=== PATIENT | female | born 1940 | race Caucasian/White ===

== ENCOUNTER 2021-06-04 21:15 | Emergency (ER) | payer MEDICARE ==
[~2021-06-04] VITALS: Ht 152.4 cm; Wt 90.1 kg
--- NOTE | 2021-06-04 22:06 | PHYS DOC ---
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 Patient lives in a fpc was sent to the emergency department for evaluation after a fall. Patient was found in her room on the floor. Patient is not able to provide any history. No deformities noted of bilateral upper and lower extremities. Patient does not grimace with movement of bilateral upper and left lower extremities. Patient has no tenderness to palpation of left hip. Patient does somewhat grimace when you move her right lower extremity. Right lower extremity is not shortened or rotated. Patient does have an abrasion over her right knee. No other injuries observed. Son at bedside states patient with baseline mental status. Review of Systems: Review of Systems: Story limited due to medical condition Heart Score: C/O Chest Pain: N/A Risk Factors: Risk Factors: DM, Current or recent (<one month) smoker, HTN, HLP, family hi story of CAD, obesity. Risk Scores: Score 0 - 3: 2.5% MACE over next 6 weeks - Discharge Home Score 4 - 6: 20.3% MACE over next 6 weeks - Admit for Clinical Observation Score 7 - 10: 72.7% MACE over next 6 weeks - Early Invasive Strategies Allergies: Allergies: Allergies Coded Allergies Type Severity Reaction Last Updated Verified Penicillins Allergy Intermediate Rash 05/05/16 Yes Physical Exam: PE: Constitutional: Well developed, well nourished, no acute distress, non-toxic appearance. [] HENT: Normocephalic, atraumatic, bilateral external ears normal, oropharynx moist, no oral exudates, nose normal. [] Eyes: PERRLA, EOMI, conjunctiva normal, no discharge. [] Neck: Normal range of motion, no tenderness, supple, no stridor. [] Cardiovascular:Heart rate regular rhythm, no murmur [] Lungs & Thorax: Bilateral breath sounds clear to auscultation [] Abdomen: Bowel sounds normal, soft, no tenderness, no masses, no pulsatile masses. [] Skin: Warm, dry, no erythema, no rash. [] Back: No tenderness, no CVA tenderness. [] Extremities: No tenderness, no cyanosis, no clubbing, ROM intact, no edema. [] Neurologic: Alert and oriented X 3, normal motor function, normal sensory function, no focal deficits noted. [] Psychologic: Affect normal, judgement normal, mood normal. [] Current Patient Data: Vital Signs: Vital Signs Date Time Temp Pulse Resp B/P (MAP) Pulse Ox O2 Delivery O2 Flow Rate FiO2 06/04/21 21:15 98.0 103 20 127/63 (96) 94 Room Air 98.0 EKG: EKG: [] Radiology/Procedures: Radiology/Procedures: [] Impression: X-ray no acute fractures or dislocations Course & Med Decision Making: Course & Med Decision Making Pertinent Labs and Imaging studies reviewed. (See chart for details) [] Patient was evaluated for chief complaint. Work-up consisted of radiologic imaging. Dragon Disclaimer: Dragon Disclaimer: This electronic medical record was generated, in whole or in part, using a voice recognition dictation system. Departure Departure Impression: Primary Impression: Fall Additional Impression: Abrasion, knee Referrals: KARLENE VEGA MD (PCP) Patient Instructions: ALFONSO Salmeron DO Jun 04, 2021 22:06
--- NOTE | 2021-06-04 22:23 | RAD ---
Exam: Right knee 3 views INDICATION: Fall TECHNIQUE: Frontal, lateral oblique views of the right knee Comparisons: None FINDINGS: Bone mineralization is normal. No acute or healed fractures. Soft tissues are unremarkable. Joint spa chung are well-maintained. IMPRESSION: No acute osseous abnormality. Electronically signed by: Rene Sampson MD (06/04/2021 10:20 PM) JUVENTINO
--- NOTE | 2021-06-04 22:35 | RAD ---
Exam: Pelvis with right hip 2 views INDICATION: Fall TECHNIQUE: Frontal and frog-leg lateral views the right hip Comparisons: None FINDINGS: Diffuse osteopenia. No acute or healed fractures. Soft tissues are unremarkable. Joint spaces are wel l-maintained. IMPRESSION: No acute fractures identified in the setting of diffuse osteopenia. If the patient is acutely unable to bear weight MRI to rule out occult hip fracture is recommended. Electronically signed by: Rene Sampson MD (06/04/2021 10:32 PM) JUVENTINO
[2021-06-04 23:23] VITALS: BP 120/62
== END 2021-06-05 01:00 | disposition home or self-care (01) ==
LOC: ER 21:15
DX: S80.211A Abrasion, right knee, initial encounter (principal); M25.551 Pain in right hip; I10 Essential (primary) hypertension; E78.00 Pure hypercholesterolemia, unspecified; Z86.73 Personal history of transient ischemic attack (TIA), and cerebral infarction without residual deficits; Z87.891 Personal history of nicotine dependence
CPT/HCPCS: 73502; 73562; 99284

== ENCOUNTER 2021-09-11 21:09 | Inpatient (IN) | payer MEDICARE ==
[~2021-09-11] VITALS: Ht 162.6 cm; Wt 83.0 kg
--- NOTE | 2021-09-11 21:22 | PHYS DOC ---
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 She does not reportedly normally require supplemental oxygen treatment. EMS gave a DuoNeb in route. She remains dyspneic on arrival, with tachypnea. She is saturating well on her supplemental oxygen. No documented known history of COPD. The patient is minimally verbal and essentially nonverbal at baseline. She moans and yells frequently to communicate. I am not able to procure any other meaningful information from the patient directly secondary to this issue. Per EMS and per the care facility, no acute mental status changes are reported. Review of Systems: Review of Systems: Constitutional: No report of fever Eyes: Unable to obtain details HENT: Unable to obtain details Respiratory: Cough and dyspnea and wheezing Cardiovascular: Unable to obtain details regarding presence of chest pain GI: Report of vomiting. Unable to obtain details of nausea or subjective abdominal pain. : Unobtainable Musculoskeletal: Unobtainable Integument: Unobtainable. No reported new skin changes Neurologic: No reported syncope or fall. Unknown if she has a headache. Unknown if she has any new sensory changes. She has chronic weakness without any acute mental status changes reported. Psychiatric: No reported acute mood changes, otherwise unobtainable. [] Heart Score: C/O Chest Pain: N/A Risk Factors: Risk Factors: DM, Current or recent (<one month) smoker, HTN, HLP, family history of CAD, obesity. Risk Scores: Score 0 - 3: 2.5% MACE over next 6 weeks - Discharge Home Score 4 - 6: 20.3% MACE over next 6 weeks - Admit for Clinical Observation Score 7 - 10: 72.7% MACE over next 6 weeks - Early Invasive Strategies Allergies: Allergies: Allergies Coded Allergies Type Severity Reaction Last Updated Verified Penicillins Allergy Intermediate Rash 05/05/16 Yes Physical Exam: PE: Constitutional: Well developed, well nourished, she is chronically ill- appearing, she is in mild to moderate respiratory distress HENT: Normocephalic, atraumatic, mucous membranes moist. Oropharynx is patent and clear. Eyes: Sclera are clear, anicteric Neck: Trachea is midline. Cardiovascular:Heart rate regular rhythm, +2 radial and +2 posterior tibial pulses bilaterally Lungs & Thorax: Tachypnea and intercostal retractions are noted. No nasal flaring. No cyanosis. Diffuse bilateral inspiratory and expiratory wheezes are noted. Diffuse rales and rhonchi are noted. Diminished breath sounds in bilateral bases. No stridor. Frequent coughing is noted. Abdomen: Soft, nondistended, no apparent tenderness. Skin: Warm, dry, no erythema, no rash. No cyanosis. Extremities: No limb deformity. She does have bilateral, symmetric lower extremity edema. No calf tenderness elicited. Neurologic: He is awake and alert. There is no obvious facial asymmetry noted. Full verbiage or communication is noted. She does moan and yell occasionally, which is common for her at baseline. She localizes to pain. Gag reflex is intact. Psychologic: She is mildly anxious [] EKG: EKG: EKG is interpreted at 2207 Rhythm is sinus tachycardia Rate is 102 bpm Low voltage No STEMI Radiology/Procedures: Radiology/Procedures: IMAGING REPORT Signed PATIENT: EMILIA COTA ACCOUNT: [id number] : 1940 LOCATION: [facility] AGE: 81 SEX: F EXAM STATUS: ADM IN ORD. PHYSICIAN: SEN COELHO DO REASON: dyspnea PROCEDURE: PORTABLE CHEST 1V XR CHEST 1V History: Dyspnea Comparison: Rib series 05/05/2016 Technique: Portable AP radiograph of the chest. Findings: Rotated positioning. Bibasilar hazy airspace opacification. No pleural effusion or pneumothorax. Cardiac mediastinal silhouette is normal in size with calcified aorta. Senescent changes of the spine. Soft tissues are unremarkable. Impression: 1. Hazy bibasilar opacities may represent atelectasis or infection. Electronically signed by: Kaleb King MD (09/12/2021 1:04 AM) [id number] DICTATED and SIGNED BY: KALEB KING MD DATE: 09/12/21 [id number] 0 Course & Med Decision Making: Course & Med Decision Making Pertinent Labs and Imaging studies reviewed. (See chart for details) The patient has history of being a former smoker. There is no documented report of COPD on her chart, though this still may be at least partially responsible for current symptoms and clinical condition. The patient is given a DuoNeb treatment here, as well as IV Solu-Medrol. She remains stable on nasal cannula oxygen. Her tachypnea is improved, no longer manifesting retractions. I did order lactate and blood cultures. Clinically she does appear to have pneumonia/pneumonitis, possible COPD exacerbation. IV Rocephin and p.o. azithromycin empirically ordered for treatment of this. The patient did rip out her IV, which was easily replaced by nursing staff. I told the patient I am recommending admission. I did review the patient's paperwork from her care facility. She has a documented DNR on file. Patient will be admitted to the hospitalist service, Dr. Deric Cunningham Disclaimer: Octavio Disclaimer: This electronic medical record was generated, in whole or in part, using a voice recognition dictation system. Departure Departure Impression: Primary Impression: Acute dyspnea Additional Impressions: Bronchospasm Pneumonia Requires supplemental oxygen Disposition: ADMITTED INPATIENT Admitting Physician: LUCIUS Condition: GUARDED Referrals: KARLENE VEGA MD (PCP) SEN COELHO DO Sep 11, 2021 21:22
[2021-09-11] MEDS ORDERED: methylPREDNISolone SOD SUCC PF 125 MG/2 ML VIAL. IV ONE (22:00)
[2021-09-11] MEDS ORDERED: IPRATRPIUM/ALBUTEROL 0.5/2.5MG 3 ML NEBU. NEB ONE (22:00)
[2021-09-11 22:02] LABS: BASE EXCESS ABG 2 mmol/L (-3-3); HCO3 ABG 26 mmol/L (21-28); PCO2 ABG 41 mmHg (35-46); PO2 ABG 71 mmHg (65-108); SAT O2 ABG 94 % (92-99)
[2021-09-11] MEDS ORDERED: ONDANSETRON PF 4 MG/2 ML VIAL. ONE (22:04)
[2021-09-11 22:06] LABS: FIO2 ABG 44 (6L NC)
[2021-09-11 22:46] LABS: BASO # 0.1 x10^3/uL (0.0-0.2); BASO % 1 % (0-3); EOS # 0.3 x10^3/uL (0.0-0.7); EOS % 3 % (0-3); HEMATOCRIT 45.3 % (36.0-47.0); LYMPH # 2.1 x10^3/uL (1.0-4.8); LYMPH % 21 % (24-48); MEAN CORPUSCULAR HEMOGLOBIN 32 pg (25-35); MEAN CORPUSCULAR HGB CONC 33 g/dL (31-37); MEAN CORPUSCULAR VOLUME 96 fL (79-100); MONO # 0.8 x10^3/uL (0.0-1.1); MONO % 8 % (0-9); NEUT % 68 % (31-73); PLATELET COUNT 253 x10^3/uL (140-400); RED BLOOD COUNT 4.74 x10^6/uL (3.50-5.40); RED CELL DISTRIBUTION WIDTH 14.1 % (11.5-14.5); WHITE BLOOD COUNT 10.3 x10^3/uL (4.0-11.0)
[2021-09-11 23:01] LABS: CALCIUM 8.9 mg/dL (8.5-10.1); CREATININE 0.9 mg/dL (0.6-1.0); GFR 59.8; POTASSIUM 4.4 mmol/L (3.5-5.1)
[2021-09-11 23:06] LABS: ALBUMIN/GLOBULIN RATIO 0.8 (1.0-1.7); TOTAL BILIRUBIN 0.4 mg/dL (0.2-1.0); TOTAL PROTEIN 6.6 g/dL (6.4-8.2)
[2021-09-11 23:08] LABS: INFLUENZA A PATIENT NEGATIVE (NEGATIVE); INFLUENZA B PATIENT NEGATIVE (NEGATIVE)
[2021-09-12] MEDS ORDERED: ONDANSETRON PF 4 MG/2 ML VIAL. IVP PRN (00:30)
[2021-09-12] MEDS ORDERED: AZITHROMYCIN 250 MG TABLET. PO ONE (01:00)
[2021-09-12] MEDS ORDERED: cefTRIAXone IV Push 1 GM VIAL. IVP ONE (01:00)
--- NOTE | 2021-09-12 01:07 | RAD ---
XR CHEST 1V History: Dyspnea Comparison: Rib series 05/05/2016 Technique: Portable AP radiograph of the chest. Findings: Rotated positioning. Bibasilar hazy airspace opacification. No pleural effusion or pneumothorax. Card iac mediastinal silhouette is normal in size with calcified aorta. Senescent changes of the spine. So ft tissues are unremarkable. Impression: 1. Hazy bibasilar opacities may represent atelectasis or infection. Electronically signed by: Kaleb Emanule MD (09/12/2021 1:04 AM) [id number]
--- NOTE | 2021-09-12 02:22 | EKG ---
[facility] [address] [place] [address] Test Date: 2021-09-11 Test Time: 21:59:07 Pat Name: EMILIA COTA Department: Room: 646 1 Gender: F Behaviorist: : 1940 Requested By: SEN COELHO Order Number: [id number] Reading MD: Samson Reed Measurements Intervals [place] Rate: 102 P: 0 DE: 208 QRS: -24 QRSD: 100 T: -54 QT: 338 QTc: 445 Interpretive Statements SINUS TACHYCARDIA ATRIAL PREMATURE COMPLEX(ES) Electronically Signed On 09-19-2021 11:42:42 [employer]A [employer]ER FEEDER by Samson Reed
[2021-09-12 02:35] VITALS: BP 103/59
--- NOTE | 2021-09-12 02:35 | NUR ---
The patient, EMILIA COTA, 81 y/o, F admitted by NIVIA TANNER MD, for COPD, Bronchospasms,and Pneumonia, PUI was given written information regarding hospital policies, unit procedures and contact persons. Patient oriented to room, call light, phone, bed and POC. Patient unable to verbalize understanding. Call light in reach. Patient aphasic, History, medications pulled from facility paperwork. Valuables were checked and documented.
[2021-09-12] MEDS ORDERED: INFLUENZA VAX SCREEN BY RX. MC PRN (03:15)
[2021-09-12] MEDS ORDERED: LEVO75CA4 PO (03:27)
[2021-09-12] MEDS ORDERED: ATOR40TA59 PO (03:28)
[2021-09-12] MEDS ORDERED: CLOP75TA PO (03:29)
[2021-09-12] MEDS ORDERED: ESCITALOPRAM OX20 MG PO (03:30)
[2021-09-12] MEDS ORDERED: CARV6.2511 PO (03:31)
[2021-09-12] MEDS ORDERED: CHOL2400 MC (03:34)
[2021-09-12] MEDS ORDERED: ACET325T21 PO (03:35)
[2021-09-12] MEDS ORDERED: GUAI-519 PO (03:37)
[2021-09-12] MEDS ORDERED: LOPE1LIQ7 PO (03:39)
[2021-09-12] MEDS ORDERED: MENT3.5O TP (03:40)
[2021-09-12] MEDS ORDERED: NYST15OI TP (03:42)
[2021-09-12] MEDS ORDERED: PETR113O TP (03:43)
[2021-09-12] MEDS ORDERED: DIPH1TAB PO (03:44)
[2021-09-12 07:00] VITALS: BP 106/54
[2021-09-12] MEDS ORDERED: FUROSEMIDE 20 MG/2 ML VIAL. IVP ONE (08:30)
--- NOTE | 2021-09-12 08:44 | CONS ---
PULMONARY CONSULTATION ATTENDING PHYSICIAN: Dr. Leos. REASON FOR CONSULTATION: Dyspnea, wheezing. HISTORY OF PRESENT ILLNESS: The patient is an 81-year-old female who was brought in to the hospital at [facility] from a long-term facility for cough and dyspnea. She was hypoxic. The patient normally does not require oxygen. She was dyspneic on arrival. The patient was placed on oxygen. Currently, she is on 3 liters of oxygen. She is minimally verbal. She moans and yells frequently to communicate but she is not able to give any history. I have seen the patient's chest x-ray, there are bilateral interstitial infiltrates. Her proBNP was in 600 range. Fever has been reported at 99.9 since admission. She is currently on oxygen at 3 liters. Consultation requested for further evaluation and management. PAST MEDICAL HISTORY: Significant for history of CVA with expressive aphasia, history of hemiplegia and hemiparesis after a CVA in 2010, history of dyslipidemia and hypertension. PAST SURGICAL HISTORY: Hysterectomy. SOCIAL HISTORY: Former smoker. ALLERGIES: PENICILLIN, CODEINE, SULFAMETHOXAZOLE AND TRIMETHOPRIM. REVIEW OF SYSTEMS: Unable to obtain from the patient. MEDICATIONS: Reviewed as listed in the MRAD. PHYSICAL EXAMINATION: VITAL SIGNS: T-max of 99.9, blood pressure is stable, pulse ox 98% on 6 liters last reported. NECK: Supple. LUNGS: With occasional rhonchi and wheezes. CARDIOVASCULAR: With a regular rate. ABDOMEN: Soft. EXTREMITIES: With no pitting edema. LABORATORY DATA: Reviewed. Her influenza is negative. Rapid COVID is negative. BUN and creatinine 9 and 0.9. ProBNP 684. Albumin 3.0. White cell count 10.3. ABGs with a pH of 7.43, pCO2 of 41 and a pO2 of 71 on 6 liters. IMPRESSION: 1. Acute hypoxic respiratory failure with bilateral infiltrates and low-grade fever. Differential diagnosis would include COVID-19 viral pneumonia, possible bacterial pneumonia and possible low-grade congestive heart failure. However, in the setting of fever, infection is likely the etiology. 2. Rapid antigen for COVID negative. We will await PCR. 3. Abnormal chest x-ray with bilateral faint interstitial infiltrates. 4. Underlying chronic obstructive pulmonary disease with acute exacerbation. This is also contributing to her hypoxic respiratory failure. 5. Previous CVA with expressive aphasia. RECOMMENDATIONS: 1. We will continue present oxygen, keep saturation 92% and above. 2. Continue empiric antibiotic. 3. Continue steroids. 4. Add DuoNeb along with Pulmicort. 5. Obtain PCR for COVID. 6. Obtain procalcitonin level. 7. Trial of mild diuresis. 8. Discussed with RN. We will follow along with you. AMITA DR: Irwin TID: [id number] MTDD
[2021-09-12 10:49] VITALS: BP 99/78
[2021-09-12] MEDS: IPRATRPIUM/ALBUTEROL 0.5/2.5MG 3 ML NEBU. NEB SCH ×2 (11:14→19:06)
--- NOTE | 2021-09-12 11:33 | NUR ---
SS following for discharge planning. SS reviewed pt chart and discussed with pt RN. Pt is resident from [facility], ; fax [phone]. Pt is currently requiring oxygen at three liters nasal canula. Pt has no home oxygen. COVID19 test pending on rapid test. PCR pending at this time. Pulmonology and Cardiology consulted. Pt on IV Azithromycin and IV Solu-Medrol. SS will continue to follow for discharge planning.
--- NOTE | 2021-09-12 12:00 | PDOC2 ---
MAYKELLAKSHMI VILLELA APPLICATION DEVELOPMENT SPECIALIST 09/12/21 1200: CARDIAC CONSULT DATE OF CONSULT Date of Consult DATE: 09/12/21 TIME: 11:54 REASON FOR CONSULT Reason for Consult: CHF, AFIB with RVR REFERRING PHYSICIAN Referring Physician: Dr. Sanchez SOURCE Source: Chart review HISTORY OF PRESENT ILLNESS HISTORY OF PRESENT ILLNESS This is an 81 yo female who presented secondary to shortness of breath, cough, and hypoxia. Has a history of AFIB, which prompted this consult. Rate has been mildly elevated. AFIB details unknown. Is noncommunicative verbally at baseline. History obtained from chart review. PAST MEDICAL HISTORY Cardiovascular: AFIB, HTN, Hyperlipidemia Pulmonary: COPD, Pneumonia CENTRAL NERVOUS SYSTEM: CVA Psych: Anxiety, Depression Endocrine: Hypothyroidism PAST SURGICAL HISTORY Past Surgical History: Hysterectomy FAMILY HISTORY Family History: Family History Unknown SOCIAL HISTORY Smoke: Quit ALCOHOL: none Drugs: None Lives: Jail CURRENT MEDICATIONS CURRENT MEDICATIONS Current Medications Medications (Trade) Dose Ordered Sig/Angela Route PRN Reason Start Time Stop Time Status Last Admin Dose Admin Albuterol/ Ipratropium (Duoneb) 3 ml 1X ONCE NEB 09/11/21 22:00 09/11/21 22:01 DC 09/11/21 21:50 Methylprednisolone Sodium Succinate (SOLU-Medrol 125MG VIAL) 125 mg 1X ONCE IV 09/11/21 22:00 09/11/21 22:01 DC 09/11/21 21:59 Ceftriaxone Sodium (Rocephin) 2 gm 1X ONCE IVP 09/12/21 01:00 09/12/21 01:01 DC 09/12/21 01:51 Azithromycin (Zithromax) 500 mg 1X ONCE PO 09/12/21 01:00 09/12/21 01:01 DC 09/12/21 01:48 Furosemide (Lasix) 20 mg 1X ONCE IVP 09/12/21 08:30 09/12/21 08:35 DC 09/12/21 08:30 ALLERGIES ALLERGIES: Coded Allergies: Penicillins (Verified Allergy, Intermediate, Rash, 05/05/16) codeine (Verified Allergy, Intermediate, 09/11/21) sulfamethoxazole (Verified Allergy, Intermediate, 09/11/21) trimethoprim (Verified Allergy, Intermediate, 09/11/21) ROS Review of System unobtainable PHYSICAL EXAM General: Alert, Cooperative HEENT: Atraumatic Lungs: Other (crackles ) Heart: Other (AFIB, rate mildly elevated ) Abdomen: Soft Extremities: Other (trace LE edema ) Neuro: Normal speech, Sensation intact Psych/Mental Status: Mental status NL, Mood NL MUSCULOSKELETAL: Osteoarthritic changes both hands VITALS/I&O VITALS/I&O: Vital Signs Date Time Temp Pulse Resp B/P (MAP) Pulse Ox O2 Delivery O2 Flow Rate FiO2 09/12/21 10:49 95.1 105 20 99/78 (85) 97 Nasal Cannula 3.0 95.1 I & O 09/11/21 09/11/21 09/12/21 15:00 23:00 07:00 Intake Total 0 ml Balance 0 ml LABS Lab: Laboratory Tests Test 09/11/21 21:32 09/11/21 21:35 09/11/21 21:45 O2 Saturation 94 % (92-99) Arterial Blood pH 7.43 (7.35-7.45) Arterial Blood pCO2 at Patient Temp 41 mmHg (35-46) Arterial Blood pO2 at Patient Temp 71 mmHg (65-108) Arterial Blood HCO3 26 mmol/L (21-28) Arterial Blood Base Excess 2 mmol/L (-3-3) FiO2 44 (6l nc) White Blood Count 10.3 x10^3/uL (4.0-11.0) Red Blood Count 4.74 x10^6/uL (3.50-5.40) Hemoglobin 15.0 g/dL (12.0-15.5) Hematocrit 45.3 % (36.0-47.0) Mean Corpuscular Volume 96 fL (79-100) Mean Corpuscular Hemoglobin 32 pg (25-35) Mean Corpuscular Hemoglobin Concent 33 g/dL (31-37) Red Cell Distribution Width 14.1 % (11.5-14.5) Platelet Count 253 x10^3/uL (140-400) Neutrophils (%) (Auto) 68 % (31-73) Lymphocytes (%) (Auto) 21 % (24-48) L Monocytes (%) (Auto) 8 % (0-9) Eosinophils (%) (Auto) 3 % (0-3) Basophils (%) (Auto) 1 % (0-3) Neutrophils # (Auto) 7.0 x10^3/uL (1.8-7.7) Lymphocytes # (Auto) 2.1 x10^3/uL (1.0-4.8) Monocytes # (Auto) 0.8 x10^3/uL (0.0-1.1) Eosinophils # (Auto) 0.3 x10^3/uL (0.0-0.7) Basophils # (Auto) 0.1 x10^3/uL (0.0-0.2) Sodium Level 139 mmol/L (136-145) Potassium Level 4.4 mmol/L (3.5-5.1) Chloride Level 102 mmol/L (98-107) Carbon Dioxide Level 29 mmol/L (21-32) Anion Gap 8 (6-14) Blood Urea Nitrogen 9 mg/dL (7-20) Creatinine 0.9 mg/dL (0.6-1.0) Estimated GFR (Cockcroft-Gault) 59.8 BUN/Creatinine Ratio 10 (6-20) Glucose Level 117 mg/dL (70-99) H Lactic Acid Level 1.7 mmol/L (0.4-2.0) Calcium Level 8.9 mg/dL (8.5-10.1) Total Bilirubin 0.4 mg/dL (0.2-1.0) Aspartate Amino Transferase (AST) 22 U/L (15-37) Alanine Aminotransferase (ALT) 36 U/L (14-59) Alkaline Phosphatase 117 U/L (46-116) H Troponin I High Sensitivity 11 ng/L (4-50) SA-Njr-E-Type Natriuretic Peptide 684 pg/mL (0-449) H Total Protein 6.6 g/dL (6.4-8.2) Albumin 3.0 g/dL (3.4-5.0) L Albumin/Globulin Ratio 0.8 (1.0-1.7) L Influenza Type A Antigen Negative (NEGATIVE) Influenza Type B Antigen Negative (NEGATIVE) SARS-CoV-2 Antigen (Rapid) Negative (NEGATIVE) Laboratory Tests 09/11/21 21:35 Laboratory Tests 09/11/21 21:35 ASSESSMENT/PLAN ASSESSMENT/PLAN 1. Acute respiratory failure with probable PNA. 2. Fevers 3. Mild acute probable diastolic CHF; s/p IV Lasix 4. AFIB; details unknown. rate intermittently elevated 5. Hypertension; low end 6. Hyperlipidemia; statin 7. H/o CVA 8. PUI; rapid negative Recommendations Start metoprolol for rate control as BP allows TSH Add ASA therapy Probable poor candidate for long-term OAC Echo if COVID negative Ongoing lung optimization, antibiotic therapy as per pulm Supportive care DELLA SMITH MD 09/12/21 [id number]: CARDIAC CONSULT ASSESSMENT/PLAN ASSESSMENT/PLAN Patient seen and evaluated I agree with our nurse practitioners assessment and plan. Acute respiratory failure with probable PNA. Continuing present treatment. Covid testing pending. Followed by pulmonary. Mild acute probable diastolic CHF; s/p IV Lasix. Echo if Covid negative. AFIB; details unknown. rate intermittently elevated. Use of metoprolol for rate control. Hypertension; low end. Monitoring. Adjusting metoprolol if needed. Hyperlipidemia; statin H/o CVA PUI; rapid negative LAKSHMI BRAR APRN Sep 12, 2021 12:00 DELLA SMITH MD Sep 12, 2021 17:55
--- NOTE | 2021-09-12 13:09 | HP ---
DATE OF SERVICE: 09/12/2021 ADMIT DATE: 09/12/2021 CHIEF COMPLAINT: Shortness of breath, cough and wheezing. HISTORY OF PRESENT ILLNESS: The patient is a pleasant 81-year-old female who resides at a retirement facility. She presented to the ER last night with shortness of breath, cough, weakness. She was hypoxic. She was also very dyspneic upon arrival. She is not a great historian. She moans and yells periodically. Her chest x-ray was abnormal showing some possible infiltrates. She also has an elevated BNP of greater than 600. I discussed the case with ER physician. We are going to admit the patient and consult Pulmonary Medicine and Cardiology. It should be noted that she also has AFib with rapid ventricular response. PAST MEDICAL HISTORY: Stroke, expressive aphasia, hemiplegia, hysterectomy, hyperlipidemia, hypertension, AFib, COPD and pneumonia, anxiety, depression, hypothyroidism. ALLERGIES: PENICILLIN, CODEINE, SULFA AND TRIMETHOPRIM. FAMILY HISTORY: Hypertension and coronary artery disease. SOCIAL HISTORY: She does not drink, smoke or take drugs. MEDICATIONS: Reviewed, please refer to the MRAD. REVIEW OF SYSTEMS: Unable to obtain. PHYSICAL EXAMINATION: VITALS: Within normal limits and are stable. GENERAL: She is pleasantly confused and resting with no apparent distress. HENT: Normocephalic atraumatic, external auditory canals are patent. EYES: Extraocular muscles are intact, pupils are equally round and reactive to light and accommodation. MUSCULOSKELETAL: Well developed, well nourished, good range of motion. ENDOCRINE: No thyromegaly was palpated. LYMPHATICS: No cervical chain or axillary nodes were noted. HEMATOPOIETIC: No bruising. NECK: Supple, no JVD, no thyromegaly was noted. LUNGS: Clear to auscultation in all lung hou without rhonchi or wheezing. HEART: RRR, S1, S2 present. Peripheral pulses intact, no obvious murmurs were noted. ABDOMEN: Soft, nontender. Positive bowel sounds no organomegaly, normal bowel sounds. EXTREMITIES: Without any cyanosis, clubbing, or edema. pedal pulses intact, Homans sign is negative. PSYCHIATRIC: She is pleasantly confused and resting with no apparent distress. NEUROLOGIC: She is pleasantly confused and resting with no apparent distress. SKIN: No ulcerations or rashes, good skin turgor, no jaundice. VASCULAR: Good capillary refill, neurovascular bundle appears to be intact. LABORATORY DATA: Hematology is normal. Electrolytes normal. COVID testing negative. Chest x-ray shows hazy bibasilar opacities, which may represent atelectasis or infection. ASSESSMENT AND PLAN: Cough, shortness of breath, abnormal chest x-ray, hypoxia, respiratory failure with probable pneumonia and atrial fibrillation. The patient has been admitted. We will consult Cardiology, consult Pulmonary Medicine. IV antibiotics, breathing treatments, oxygen. Cardiac monitoring. IV steroids, home meds. Deep venous thrombosis prophylaxis. Do not resuscitate. Prognosis is guarded. [facility] [place] DR: Jen TID: [id number]
[2021-09-12] MEDS: methylPREDNISolone SOD SUCC PF 40 MG/ML VIAL. IV SCH ×2 (13:28→19:52)
[2021-09-12 15:00] VITALS: BP 117/70
[2021-09-12 16:00] LABS: CHOLESTEROL/HDL RATIO 4.4
[2021-09-12] MEDS: ASPIRIN ENTERIC COATED 81 MG TABLET.DR. PO SCH (16:52)
[2021-09-12] MEDS: METOPROLOL TART IMMED RELEASE 25 MG TABLET. PO SCH ×2 (16:52→19:52)
[2021-09-12 18:28] VITALS: BP 109/62
[2021-09-12] MEDS: BUDESONIDE 0.5 MG/2 ML NEBU. NEB SCH (19:06)
[2021-09-12] MEDS: AZITHROMYCIN 250 MG in IV NORMAL SALINE 250ML 250 ML IV SCH (19:53)
[2021-09-12 22:06] VITALS: BP 96/70
[2021-09-13 02:30] VITALS: BP 123/79
[2021-09-13] MEDS: methylPREDNISolone SOD SUCC PF 40 MG/ML VIAL. IV SCH ×3 (05:45→19:43)
[2021-09-13 07:00] VITALS: BP 140/76
[2021-09-13] MEDS: IPRATRPIUM/ALBUTEROL 0.5/2.5MG 3 ML NEBU. NEB SCH ×4 (08:21→20:13)
[2021-09-13] MEDS: BUDESONIDE 0.5 MG/2 ML NEBU. NEB SCH ×2 (08:22→20:13)
[2021-09-13] MEDS: ASPIRIN ENTERIC COATED 81 MG TABLET.DR. PO SCH (08:33)
[2021-09-13] MEDS: METOPROLOL TART IMMED RELEASE 25 MG TABLET. PO SCH ×2 (08:34→19:43)
[2021-09-13 11:00] VITALS: BP 131/68
--- NOTE | 2021-09-13 11:15 | PDOC ---
PULMONARY PROGRESS NOTES DATE: 09/13/21 TIME: 11:13 Subjective Patient denies any shortness of breath but has wheezing Vitals Vital Signs Date Time Temp Pulse Resp B/P (MAP) Pulse Ox O2 Delivery O2 Flow Rate FiO2 09/13/21 08:34 85 123/79 09/13/21 08:26 95 Nasal Cannula 3.0 09/13/21 07:00 97.6 19 97.6 General: Alert, No acute distress Lungs: Wheezing Cardiovascular: S1 Abdomen: Soft Neuro Exam: Alert Extremities: No Edema Skin: Warm Labs Laboratory Tests Test 09/11/21 21:32 09/11/21 21:35 09/11/21 21:45 09/12/21 14:00 O2 Saturation 94 % (92-99) Arterial Blood pH 7.43 (7.35-7.45) Arterial Blood pCO2 at Patient Temp 41 mmHg (35-46) Arterial Blood pO2 at Patient Temp 71 mmHg (65-108) Arterial Blood HCO3 26 mmol/L (21-28) Arterial Blood Base Excess 2 mmol/L (-3-3) FiO2 44 (6l nc) White Blood Count 10.3 x10^3/uL (4.0-11.0) Red Blood Count 4.74 x10^6/uL (3.50-5.40) Hemoglobin 15.0 g/dL (12.0-15.5) Hematocrit 45.3 % (36.0-47.0) Mean Corpuscular Volume 96 fL (79-100) Mean Corpuscular Hemoglobin 32 pg (25-35) Mean Corpuscular Hemoglobin Concent 33 g/dL (31-37) Red Cell Distribution Width 14.1 % (11.5-14.5) Platelet Count 253 x10^3/uL (140-400) Neutrophils (%) (Auto) 68 % (31-73) Lymphocytes (%) (Auto) 21 % (24-48) Monocytes (%) (Auto) 8 % (0-9) Eosinophils (%) (Auto) 3 % (0-3) Basophils (%) (Auto) 1 % (0-3) Neutrophils # (Auto) 7.0 x10^3/uL (1.8-7.7) Lymphocytes # (Auto) 2.1 x10^3/uL (1.0-4.8) Monocytes # (Auto) 0.8 x10^3/uL (0.0-1.1) Eosinophils # (Auto) 0.3 x10^3/uL (0.0-0.7) Basophils # (Auto) 0.1 x10^3/uL (0.0-0.2) Sodium Level 139 mmol/L (136-145) Potassium Level 4.4 mmol/L (3.5-5.1) Chloride Level 102 mmol/L (98-107) Carbon Dioxide Level 29 mmol/L (21-32) Anion Gap 8 (6-14) Blood Urea Nitrogen 9 mg/dL (7-20) Creatinine 0.9 mg/dL (0.6-1.0) Estimated GFR (Cockcroft-Gault) 59.8 BUN/Creatinine Ratio 10 (6-20) Glucose Level 117 mg/dL (70-99) Lactic Acid Level 1.7 mmol/L (0.4-2.0) Calcium Level 8.9 mg/dL (8.5-10.1) Total Bilirubin 0.4 mg/dL (0.2-1.0) Aspartate Amino Transf (AST/SGOT) 22 U/L (15-37) Alanine Aminotransferase (ALT/SGPT) 36 U/L (14-59) Alkaline Phosphatase 117 U/L (46-116) Troponin I High Sensitivity 11 ng/L (4-50) ZK-Efa-S-Type Natriuretic Peptide 684 pg/mL (0-449) Total Protein 6.6 g/dL (6.4-8.2) Albumin 3.0 g/dL (3.4-5.0) Albumin/Globulin Ratio 0.8 (1.0-1.7) Coronavirus (COVID-19)(PCR) Not detected (NOT DETECTD) Influenza Type A Antigen Negative (NEGATIVE) Influenza Type B Antigen Negative (NEGATIVE) SARS-CoV-2 Antigen (Rapid) Negative (NEGATIVE) Triglycerides Level 79 mg/dL (0-150) Cholesterol Level 161 mg/dL (0-200) LDL Cholesterol, Calculated 108 mg/dL (0-100) VLDL Cholesterol, Calculated 16 mg/dL (0-40) Non-HDL Cholesterol Calculated 124 mg/dL (0-129) HDL Cholesterol 37 mg/dL (40-60) Cholesterol/HDL Ratio 4.4 Procalcitonin < 0.10 ng/mL (0.00-0.10) Thyroid Stimulating Hormone (TSH) 0.700 uIU/mL (0.358-3.74) Laboratory Tests Test 09/12/21 14:00 Triglycerides Level 79 mg/dL (0-150) Cholesterol Level 161 mg/dL (0-200) LDL Cholesterol, Calculated 108 mg/dL (0-100) VLDL Cholesterol, Calculated 16 mg/dL (0-40) Non-HDL Cholesterol Calculated 124 mg/dL (0-129) HDL Cholesterol 37 mg/dL (40-60) Cholesterol/HDL Ratio 4.4 Procalcitonin < 0.10 ng/mL (0.00-0.10) Thyroid Stimulating Hormone (TSH) 0.700 uIU/mL (0.358-3.74) Medications Active Scripts Medications Dose Route/Sig Max Daily Dose Days Date Category Lomotil Tablet (Diphenoxylate Hcl/Atropine) 1 Each Tablet 1 Tab PO QID 09/12/21 Reported Vitamin A & D Ointment (Petrolatum,White/Lanolin) 113 Gm Oint...g. 113 Gm TP PRN PRN 09/12/21 Reported Nystatin 15 Gm Oint...g. 1 Reena TP BID 09/12/21 Reported Calmoseptine Ointment (Menthol/Zinc Oxide) 3.5 Gm Oint.pack 3.5 Gm TP BID 09/12/21 Reported Imodium A-D (Loperamide Hcl) 1 Mg/7.5 Ml Liquid 1 Mg PO PRN PRN 09/12/21 Reported Danii-Tussin (Guaifenesin) 100 Mg/5 Ml Liquid 10-20 Ml PO PRN Q4HRS 09/12/21 Reported Acetaminophen 325 Mg Tablet 2 Tab PO PRN Q4-6HRS PRN 30 09/12/21 Reported Vitamin D3 (Cholecalciferol (Vitamin D3)) 2,400 Unit/1 Ml Liquid 1,000 Unit MC DAILY 09/12/21 Reported Carvedilol (Carvedilol) 6.25 Mg Tablet 6.25 Mg PO BIDWMEALS 09/12/21 Reported Escitalopram Oxalate 20 Mg Tablet 1 Tab PO DAILY 09/12/21 Reported Clopidogrel (Clopidogrel Bisulfate) 75 Mg Tablet 1 Tab PO DAILY 09/12/21 Reported Atorvastatin Calcium 40 Mg Tablet 1 Tab PO DAILY 09/12/21 Reported Levothyroxine (Levothyroxine Sodium) 75 Mcg Capsule 75 Mcg PO DAILY06 09/12/21 Reported Impression . 1. Acute hypoxic respiratory failure with bilateral infiltrates and low-grade fever. Likely CHF. Acute on chronic diastolic heart failure. Cannot exclude viral pneumonia. Procalcitonin was normal 2. Rapid antigen for COVID negative. Negative PCR as well 3. Abnormal chest x-ray with bilateral faint interstitial infiltrates. 4. Underlying chronic obstructive pulmonary disease with acute exacerbation. This is also contributing to her hypoxic respiratory failure. 5. Previous CVA with expressive aphasia. 6. Atrial fibrillation Plan . RECOMMENDATIONS: 1. We will continue present oxygen, keep saturation 92% and above. 2. Continue empiric antibiotic. 3. Continue steroids. 4. DuoNeb along with Pulmicort. 5. Diuresis. 6. Nl procalcitonin level. 7. Echocardiogram 8. Discussed with RN. And cardiology NGUYEN GATICA MD Sep 13, 2021 11:15
--- NOTE | 2021-09-13 11:50 | PDOC ---
[employer] PROGRESS NOTE Date of Service DOS: DATE: 09/13/21 TIME: 11:49 Chief Complaint Chief Complaint Respiratory failure pneumonia Cough, shortness of breath, abnormal chest x-ray, hypoxia, and atrial fibrillation Stroke, expressive aphasia, hemiplegia, hysterectomy, hyperlipidemia, hypertension, AFib, COPD and pneumonia, anxiety, depression, hypothyroidism. History of Present Illness History of Present Illness 09/13/2012 Patient seen and examined She is a little bit agitated at times but overall doing well She really wants to watch the prices right on TV and that seems to make her happy Seems pleasantly confused [employer] working with her and doing a good job keeping her calm Chart reviewed Discussed with RN Vitals/I&O Vitals/I&O: Vital Signs Date Time Temp Pulse Resp B/P (MAP) Pulse Ox O2 Delivery O2 Flow Rate FiO2 09/13/21 08:34 85 123/79 09/13/21 08:26 95 Nasal Cannula 3.0 09/13/21 07:00 97.6 19 97.6 I & O 09/12/21 09/12/21 09/13/21 15:00 23:00 07:00 Intake Total 0 ml 450 ml 150 ml Balance 0 ml 450 ml 150 ml Physical Exam General: No acute distress, Other (Pleasantly confused) Heart: Other (AFIB, rate mildly elevated ) Lungs: Wheezing, Crackles Abdomen: Soft Extremities: Other (trace LE edema ) Labs Labs: Laboratory Tests Test 09/12/21 14:00 Triglycerides Level 79 mg/dL (0-150) Cholesterol Level 161 mg/dL (0-200) LDL Cholesterol, Calculated 108 mg/dL (0-100) VLDL Cholesterol, Calculated 16 mg/dL (0-40) Non-HDL Cholesterol Calculated 124 mg/dL (0-129) HDL Cholesterol 37 mg/dL (40-60) Cholesterol/HDL Ratio 4.4 Procalcitonin < 0.10 ng/mL (0.00-0.10) Thyroid Stimulating Hormone (TSH) 0.700 uIU/mL (0.358-3.74) Assessment and Plan Assessmemt and Plan Problems Medical Problems: (1) Acute dyspnea Status: Acute (2) Bronchospasm Status: Acute (3) Pneumonia Status: Acute (4) Requires supplemental oxygen Status: Acute Respiratory failure pneumonia Cough, shortness of breath, abnormal chest x-ray, hypoxia, and atrial fibrillation Stroke, expressive aphasia, hemiplegia, hysterectomy, hyperlipidemia, hypertension, AFib, COPD and pneumonia, anxiety, depression, hypothyroidism. Plan Cardiac monitoring Negative chronotropic agents per cardiology IV antibiotics Lasix Duo nebs O2 per nasal cannula Home meds PT OT DVT prophylaxis DNR Appreciate subspecialist input May need snf after discharge Per cardiology recommendations please see the following and we certainly agree and appreciate their input; ASSESSMENT/PLAN 1. Acute respiratory failure with probable PNA. 2. Fevers 3. Mild acute probable diastolic CHF; s/p IV Lasix 4. AFIB; details unknown. rate intermittently elevated 5. Hypertension; low end 6. Hyperlipidemia; statin 7. H/o CVA 8. PUI; rapid negative Recommendations Start metoprolol for rate control as BP allows TSH Add ASA therapy Probable poor candidate for long-term OAC Echo if COVID negative Ongoing lung optimization, antibiotic therapy as per pulm Supportive care Comment Review of Relevant I have reviewed the following items sushma (where applicable) has been applied. Medications: Current Medications Medications (Trade) Dose Ordered Sig/Angela Route PRN Reason Start Time Stop Time Status Last Admin Dose Admin Methylprednisolone Sodium Succinate (SOLU-Medrol 40MG VIAL) 40 mg Q8HRS IV 09/12/21 14:00 09/13/21 05:45 Albuterol/ Ipratropium (Duoneb) 3 ml RTQID NEB 09/12/21 12:00 09/13/21 08:21 Budesonide (Pulmicort) 0.5 mg RTBID NEB 09/12/21 20:00 09/13/21 08:22 Azithromycin 250 mg/Sodium Chloride 250 ml @ 250 mls/hr Q24H IV 09/12/21 21:00 09/15/21 21:59 09/12/21 19:53 Metoprolol Tartrate (Lopressor) 25 mg BID PO 09/12/21 12:30 09/13/21 08:34 Aspirin (Ecotrin) 81 mg [id number] PO 09/12/21 16:00 09/13/21 08:33 Justifications for Admission Other Justification REMA STEVEN III DO Sep 13, 2021 11:50
[2021-09-13] MEDS ORDERED: guaiFENesin ORAL 200 MG/10 ML LIQUID. PO PRN (12:00)
[2021-09-13] MEDS ORDERED: ACETAMINOPHEN 325 MG TABLET. PO PRN (12:00)
[2021-09-13] MEDS ORDERED: PETROLATUM WHITE TP PRN (12:00)
[2021-09-13] MEDS: CHOLECALCIFEROL (VITAMIN D3) 1,000 UNIT TABLET PO SCH (12:00)
[2021-09-13] MEDS ORDERED: LANOLIN TP PRN (12:00)
[2021-09-13] MEDS: LEVOTHYROXINE 75 MCG TABLET PO SCH (12:29)
[2021-09-13] MEDS: CITALOPRAM 20 MG TABLET. PO SCH (12:29)
[2021-09-13] MEDS: CLOPIDOGREL BISULFATE 75 MG TABLET PO SCH (12:29)
[2021-09-13] MEDS ORDERED: ONDANSETRON PF 4 MG/2 ML VIAL. IVP PRN (12:30)
--- NOTE | 2021-09-13 12:35 | NUR ---
SS following up with discharge planning. SS reviewed pt chart and discussed with pt RN. Pt is resident from [facility], ; fax [phone]. Pt is currently requiring oxygen at three liters nasal canula. Pt has no home oxygen. COVID19 negative. Pt on IV Azithromycin and IV Solu-Medrol. PT/OT ordered. SS will continue to follow for discharge planning.
[2021-09-13] MEDS: DIPHENOXYLATE/ATROPINE TABLET. PO SCH ×3 (13:00→19:43)
[2021-09-13] MEDS ORDERED: FUROSEMIDE 40 MG/4 ML VIAL. IVP ONE (13:30)
[2021-09-13] MEDS ORDERED: POTASSIUM CHLORIDE 20 MEQ TABLET.ER. PO ONE (13:30)
--- NOTE | 2021-09-13 13:31 | PDOC ---
CARDIO Progress Notes Date and Time Date of Service 09/13/21 Time of Evaluation 1210 Subjective Subjective: Other ( expressive aphasia.) Vitals Vitals Vital Signs Date Time Temp Pulse Resp B/P (MAP) Pulse Ox O2 Delivery O2 Flow Rate FiO2 09/13/21 11:00 98.3 85 19 131/68 (89) 100 Nasal Cannula 3.0 98.3 Weight Weight [ ] Input and Output Intake and Output Intake and Output 09/13/21 07:00 Intake Total 600 ml Balance 600 ml Intake Oral 350 ml IV Total 250 ml # Voids 1 Laboratory Labs Laboratory Tests Test 09/12/21 14:00 Triglycerides Level 79 mg/dL (0-150) Cholesterol Level 161 mg/dL (0-200) LDL Cholesterol, Calculated 108 mg/dL (0-100) VLDL Cholesterol, Calculated 16 mg/dL (0-40) Non-HDL Cholesterol Calculated 124 mg/dL (0-129) HDL Cholesterol 37 mg/dL (40-60) Cholesterol/HDL Ratio 4.4 Procalcitonin < 0.10 ng/mL (0.00-0.10) Thyroid Stimulating Hormone (TSH) 0.700 uIU/mL (0.358-3.74) Microbiology Micro Microbiology 09/11/21 Blood Culture - Preliminary, Resulted NO GROWTH AFTER 1 DAY Physical Exam HEENT: Neck Supple W Full Motion Chest: Symmetric LUNGS: Other (diminished bases) Heart: irregularly irregular (AFIB, rate controlled ) Abdomen: Soft N/T Extremities: No Edema Neurology: alert, follow commands, other ( expressive aphasia.) Assessment Assessment 1. Acute respiratory failure secondary to CHF 2. Fevers; resolved 3. Acute probable diastolic CHF; s/p IV Lasix 4. AFIB; details unknown. rate now controlled 5. Hypertension; low end 6. Hyperlipidemia; statin 7. H/o CVA with expressive aphasia. 8. PUI; COVID negative Recommendations Continue metoprolol for rate control ASA therapy Probable poor candidate for long-term OAC Echo to assess LV systolic function Will give additional dose of Lasix today Supportive care Justicifation of Admission Dx: Justifications for Admission: Justification of Admission Dx: Yes Comments: Acute respiratory failure secondary to acute CHF LAKSHMI BRAR APRN Sep 13, 2021 13:31
[2021-09-13 14:56] LABS: CALCIUM 8.5 mg/dL (8.5-10.1); CREATININE 0.9 mg/dL (0.6-1.0); GFR 59.8; MAGNESIUM 2.4 mg/dL (1.8-2.4); POTASSIUM 3.9 mmol/L (3.5-5.1)
[2021-09-13 15:00] VITALS: BP 108/85
[2021-09-13] MEDS ORDERED: CARVEDILOL 6.25 MG TABLET. PO SCH (17:00)
[2021-09-13 19:24] VITALS: BP 93/54
[2021-09-13] MEDS: LACTOBACILLUS RHAMNOSUS GG 1 CAPSULE. PO SCH (19:42)
[2021-09-13] MEDS: AZITHROMYCIN 250 MG in IV NORMAL SALINE 250ML 250 ML IV SCH (19:42)
[2021-09-13] MEDS: NYSTATIN 100,000 UNIT/GM TOPICAL OINTMENT 15GM TUBE. TP SCH (19:45)
[2021-09-13] MEDS ORDERED: ATORVASTATIN CALCIUM 40 MG TABLET. PO SCH (21:00)
[2021-09-13] MEDS ORDERED: NON FORMULARY ITEM (Menthol/Zinc Oxide (Calmoseptine Ointment) 3.5 GM) TP SCH (21:00)
[2021-09-13 22:06] VITALS: BP 112/79
[2021-09-14 02:03] VITALS: BP 114/67
[2021-09-14 03:43] LABS: CALCIUM 8.5 mg/dL (8.5-10.1); CREATININE 0.8 mg/dL (0.6-1.0); GFR 68.5; POTASSIUM 3.8 mmol/L (3.5-5.1)
[2021-09-14 03:45] LABS: BASO % 0 % (0-3); EOS % 0 % (0-3); HEMOGLOBIN 13.7 g/dL (12.0-15.5); LYMPH # 1.3 x10^3/uL (1.0-4.8); LYMPH % 8 % (24-48); MEAN CORPUSCULAR HEMOGLOBIN 31 pg (25-35); MEAN CORPUSCULAR HGB CONC 33 g/dL (31-37); MEAN CORPUSCULAR VOLUME 96 fL (79-100); MONO # 0.4 x10^3/uL (0.0-1.1); MONO % 3 % (0-9); NEUT # 14.1 x10^3/uL (1.8-7.7); NEUT % 89 % (31-73); PLATELET COUNT 275 x10^3/uL (140-400); RED BLOOD COUNT 4.37 x10^6/uL (3.50-5.40); WHITE BLOOD COUNT 15.8 x10^3/uL (4.0-11.0)
[2021-09-14] MEDS: LEVOTHYROXINE 75 MCG TABLET PO SCH (05:33)
[2021-09-14] MEDS: methylPREDNISolone SOD SUCC PF 40 MG/ML VIAL. IV SCH ×2 (05:33→13:13)
[2021-09-14] MEDS: BUDESONIDE 0.5 MG/2 ML NEBU. NEB SCH (05:49)
[2021-09-14] MEDS: IPRATRPIUM/ALBUTEROL 0.5/2.5MG 3 ML NEBU. NEB SCH ×2 (05:49→11:25)
[2021-09-14 07:55] VITALS: BP 89/52
[2021-09-14] MEDS: CHOLECALCIFEROL (VITAMIN D3) 1,000 UNIT TABLET PO SCH (08:10)
[2021-09-14] MEDS: DIPHENOXYLATE/ATROPINE TABLET. PO SCH ×2 (08:10→13:13)
[2021-09-14] MEDS: CLOPIDOGREL BISULFATE 75 MG TABLET PO SCH (08:10)
[2021-09-14] MEDS: LACTOBACILLUS RHAMNOSUS GG 1 CAPSULE. PO SCH (08:11)
[2021-09-14] MEDS: ASPIRIN ENTERIC COATED 81 MG TABLET.DR. PO SCH (08:11)
[2021-09-14] MEDS: CITALOPRAM 20 MG TABLET. PO SCH (08:11)
[2021-09-14] MEDS: METOPROLOL TART IMMED RELEASE 25 MG TABLET. PO SCH (08:12)
[2021-09-14] MEDS ORDERED: FLU VACC QUAD 21-22 (6MOS+) PF 0.5 ML SYRINGE. VAX IM ONE (09:00)
[2021-09-14] MEDS: NYSTATIN 100,000 UNIT/GM TOPICAL OINTMENT 15GM TUBE. TP SCH (09:00)
[2021-09-14 10:17] VITALS: BP 110/65
--- NOTE | 2021-09-14 11:14 | PDOC ---
TERRI CHOE SCALE OPERATOR 09/14/21 1114: CARDIO Progress Notes Date and Time Date of Service 09/14/2021 Time of Evaluation 1100 Subjective Subjective: Other ( expressive aphasia.) Vitals Vitals Vital Signs Date Time Temp Pulse Resp B/P (MAP) Pulse Ox O2 Delivery O2 Flow Rate FiO2 09/14/21 10:17 96.5 79 18 110/65 (80) 95 Nasal Cannula 3.0 96.5 Weight Weight [ ] Input and Output Intake and Output Intake and Output 09/14/21 07:00 Intake Total 830 ml Balance 830 ml Intake Oral 580 ml IV Total 250 ml # Voids 6 Laboratory Labs Laboratory Tests Test 09/13/21 13:20 09/14/21 02:35 Sodium Level 138 mmol/L (136-145) 139 mmol/L (136-145) Potassium Level 3.9 mmol/L (3.5-5.1) 3.8 mmol/L (3.5-5.1) Chloride Level 101 mmol/L (98-107) 101 mmol/L (98-107) Carbon Dioxide Level 30 mmol/L (21-32) 30 mmol/L (21-32) Anion Gap 7 (6-14) 8 (6-14) Blood Urea Nitrogen 17 mg/dL (7-20) 21 mg/dL (7-20) Creatinine 0.9 mg/dL (0.6-1.0) 0.8 mg/dL (0.6-1.0) Estimated GFR (Cockcroft-Gault) 59.8 68.5 Glucose Level 150 mg/dL (70-99) 142 mg/dL (70-99) Calcium Level 8.5 mg/dL (8.5-10.1) 8.5 mg/dL (8.5-10.1) Magnesium Level 2.4 mg/dL (1.8-2.4) White Blood Count 15.8 x10^3/uL (4.0-11.0) Red Blood Count 4.37 x10^6/uL (3.50-5.40) Hemoglobin 13.7 g/dL (12.0-15.5) Hematocrit 42.0 % (36.0-47.0) Mean Corpuscular Volume 96 fL (79-100) Mean Corpuscular Hemoglobin 31 pg (25-35) Mean Corpuscular Hemoglobin Concent 33 g/dL (31-37) Red Cell Distribution Width 14.0 % (11.5-14.5) Platelet Count 275 x10^3/uL (140-400) Neutrophils (%) (Auto) 89 % (31-73) Lymphocytes (%) (Auto) 8 % (24-48) Monocytes (%) (Auto) 3 % (0-9) Eosinophils (%) (Auto) 0 % (0-3) Basophils (%) (Auto) 0 % (0-3) Neutrophils # (Auto) 14.1 x10^3/uL (1.8-7.7) Lymphocytes # (Auto) 1.3 x10^3/uL (1.0-4.8) Monocytes # (Auto) 0.4 x10^3/uL (0.0-1.1) Eosinophils # (Auto) 0.0 x10^3/uL (0.0-0.7) Basophils # (Auto) 0.0 x10^3/uL (0.0-0.2) Microbiology Micro Microbiology 09/11/21 Blood Culture - Preliminary, Resulted NO GROWTH AFTER 2 DAYS Physical Exam HEENT: Neck Supple W Full Motion Chest: Symmetric LUNGS: Other (diminished bases) Heart: irregularly irregular (AFIB, rate controlled ) Abdomen: Soft N/T Extremities: No Edema Neurology: alert, follow commands, other ( expressive aphasia.) Assessment Assessment 1. Acute respiratory failure secondary to CHF appears compensatedd 2. Fevers; resolved 3. Acute probable diastolic CHF; s/p IV Lasix 4. AFIB; details unknown. rate now controlled 5. Hypertension; low end 6. Hyperlipidemia; statin 7. H/o CVA with expressive aphasia. 8. PUI; COVID negative Recommendations Continue metoprolol for rate control DC ASA and plavix. Start on eliquis for stroke prevention Echo to assess LV systolic function Lasix PRN Supportive care Justicifation of Admission Dx: Justifications for Admission: Justification of Admission Dx: Yes DELLA SMITH MD 09/14/21 1523: CARDIO Progress Notes Assessment Assessment Patient seen and examined She appears more comfortable today. Plan Plan Patient seen and examined I agree with our nurse practitioners assessment and plan. Acute respiratory failure secondary to CHF. Compensated. Continuing medications including metoprolol. Fevers; resolved Acute probable diastolic CHF; Lasix as needed. AFIB; rate control with beta-blockers. Will start Eliquis. Hypertension; improving. Hyperlipidemia; statin H/o CVA with expressive aphasia. PUI; COVID negative TERRI CHOE APRN Sep 14, 2021 11:14 DELLA SMITH MD Sep 14, 2021 15:23
[2021-09-14] MEDS ORDERED: FUROSEMIDE 20 MG/2 ML VIAL. IVP ONE (11:15)
--- NOTE | 2021-09-14 11:33 | PDOC ---
PULMONARY PROGRESS NOTES DATE: 09/14/21 TIME: 11:31 Subjective Patient looks comfortable. No obvious shortness of breath. Vitals Vital Signs Date Time Temp Pulse Resp B/P (MAP) Pulse Ox O2 Delivery O2 Flow Rate FiO2 09/14/21 11:26 94 Nasal Cannula 3.0 09/14/21 10:17 96.5 79 18 110/65 (80) 96.5 General: Alert, No acute distress Lungs: Other (Wheezing resolved today.) Cardiovascular: S1 Abdomen: Soft Neuro Exam: Alert Extremities: No Edema Skin: Warm Labs Laboratory Tests Test 09/12/21 14:00 09/13/21 13:20 09/14/21 02:35 Triglycerides Level 79 mg/dL (0-150) Cholesterol Level 161 mg/dL (0-200) LDL Cholesterol, Calculated 108 mg/dL (0-100) VLDL Cholesterol, Calculated 16 mg/dL (0-40) Non-HDL Cholesterol Calculated 124 mg/dL (0-129) HDL Cholesterol 37 mg/dL (40-60) Cholesterol/HDL Ratio 4.4 Procalcitonin < 0.10 ng/mL (0.00-0.10) Thyroid Stimulating Hormone (TSH) 0.700 uIU/mL (0.358-3.74) Sodium Level 138 mmol/L (136-145) 139 mmol/L (136-145) Potassium Level 3.9 mmol/L (3.5-5.1) 3.8 mmol/L (3.5-5.1) Chloride Level 101 mmol/L (98-107) 101 mmol/L (98-107) Carbon Dioxide Level 30 mmol/L (21-32) 30 mmol/L (21-32) Anion Gap 7 (6-14) 8 (6-14) Blood Urea Nitrogen 17 mg/dL (7-20) 21 mg/dL (7-20) Creatinine 0.9 mg/dL (0.6-1.0) 0.8 mg/dL (0.6-1.0) Estimated GFR (Cockcroft-Gault) 59.8 68.5 Glucose Level 150 mg/dL (70-99) 142 mg/dL (70-99) Calcium Level 8.5 mg/dL (8.5-10.1) 8.5 mg/dL (8.5-10.1) Magnesium Level 2.4 mg/dL (1.8-2.4) White Blood Count 15.8 x10^3/uL (4.0-11.0) Red Blood Count 4.37 x10^6/uL (3.50-5.40) Hemoglobin 13.7 g/dL (12.0-15.5) Hematocrit 42.0 % (36.0-47.0) Mean Corpuscular Volume 96 fL (79-100) Mean Corpuscular Hemoglobin 31 pg (25-35) Mean Corpuscular Hemoglobin Concent 33 g/dL (31-37) Red Cell Distribution Width 14.0 % (11.5-14.5) Platelet Count 275 x10^3/uL (140-400) Neutrophils (%) (Auto) 89 % (31-73) Lymphocytes (%) (Auto) 8 % (24-48) Monocytes (%) (Auto) 3 % (0-9) Eosinophils (%) (Auto) 0 % (0-3) Basophils (%) (Auto) 0 % (0-3) Neutrophils # (Auto) 14.1 x10^3/uL (1.8-7.7) Lymphocytes # (Auto) 1.3 x10^3/uL (1.0-4.8) Monocytes # (Auto) 0.4 x10^3/uL (0.0-1.1) Eosinophils # (Auto) 0.0 x10^3/uL (0.0-0.7) Basophils # (Auto) 0.0 x10^3/uL (0.0-0.2) Laboratory Tests Test 09/13/21 13:20 09/14/21 02:35 Sodium Level 138 mmol/L (136-145) 139 mmol/L (136-145) Potassium Level 3.9 mmol/L (3.5-5.1) 3.8 mmol/L (3.5-5.1) Chloride Level 101 mmol/L (98-107) 101 mmol/L (98-107) Carbon Dioxide Level 30 mmol/L (21-32) 30 mmol/L (21-32) Anion Gap 7 (6-14) 8 (6-14) Blood Urea Nitrogen 17 mg/dL (7-20) 21 mg/dL (7-20) Creatinine 0.9 mg/dL (0.6-1.0) 0.8 mg/dL (0.6-1.0) Estimated GFR (Cockcroft-Gault) 59.8 68.5 Glucose Level 150 mg/dL (70-99) 142 mg/dL (70-99) Calcium Level 8.5 mg/dL (8.5-10.1) 8.5 mg/dL (8.5-10.1) Magnesium Level 2.4 mg/dL (1.8-2.4) White Blood Count 15.8 x10^3/uL (4.0-11.0) Red Blood Count 4.37 x10^6/uL (3.50-5.40) Hemoglobin 13.7 g/dL (12.0-15.5) Hematocrit 42.0 % (36.0-47.0) Mean Corpuscular Volume 96 fL (79-100) Mean Corpuscular Hemoglobin 31 pg (25-35) Mean Corpuscular Hemoglobin Concent 33 g/dL (31-37) Red Cell Distribution Width 14.0 % (11.5-14.5) Platelet Count 275 x10^3/uL (140-400) Neutrophils (%) (Auto) 89 % (31-73) Lymphocytes (%) (Auto) 8 % (24-48) Monocytes (%) (Auto) 3 % (0-9) Eosinophils (%) (Auto) 0 % (0-3) Basophils (%) (Auto) 0 % (0-3) Neutrophils # (Auto) 14.1 x10^3/uL (1.8-7.7) Lymphocytes # (Auto) 1.3 x10^3/uL (1.0-4.8) Monocytes # (Auto) 0.4 x10^3/uL (0.0-1.1) Eosinophils # (Auto) 0.0 x10^3/uL (0.0-0.7) Basophils # (Auto) 0.0 x10^3/uL (0.0-0.2) Medications Active Scripts Medications Dose Route/Sig Max Daily Dose Days Date Category Lomotil Tablet (Diphenoxylate Hcl/Atropine) 1 Each Tablet 1 Tab PO QID 09/12/21 Reported Vitamin A & D Ointment (Petrolatum,White/Lanolin) 113 Gm Oint...g. 113 Gm TP PRN PRN 09/12/21 Reported Nystatin 15 Gm Oint...g. 1 Reena TP BID 09/12/21 Reported Calmoseptine Ointment (Menthol/Zinc Oxide) 3.5 Gm Oint.pack 3.5 Gm TP BID 09/12/21 Reported Imodium A-D (Loperamide Hcl) 1 Mg/7.5 Ml Liquid 1 Mg PO PRN PRN 09/12/21 Reported Danii-Tussin (Guaifenesin) 100 Mg/5 Ml Liquid 10-20 Ml PO PRN Q4HRS 09/12/21 Reported Acetaminophen 325 Mg Tablet 2 Tab PO PRN Q4-6HRS PRN 30 09/12/21 Reported Vitamin D3 (Cholecalciferol (Vitamin D3)) 2,400 Unit/1 Ml Liquid 1,000 Unit MC DAILY 09/12/21 Reported Carvedilol (Carvedilol) 6.25 Mg Tablet 6.25 Mg PO BIDWMEALS 09/12/21 Reported Escitalopram Oxalate 20 Mg Tablet 1 Tab PO DAILY 09/12/21 Reported Clopidogrel (Clopidogrel Bisulfate) 75 Mg Tablet 1 Tab PO DAILY 09/12/21 Reported Atorvastatin Calcium 40 Mg Tablet 1 Tab PO DAILY 09/12/21 Reported Levothyroxine (Levothyroxine Sodium) 75 Mcg Capsule 75 Mcg PO DAILY06 09/12/21 Reported Impression . 1. Acute hypoxic respiratory failure with bilateral infiltrates Likely acute on chronic diastolic CHF. Cannot exclude viral pneumonia. Procalcitonin was normal. She did have a low-grade fever on admission. Fevers resolved. 2. Rapid antigen for COVID negative. Negative PCR as well 3. Abnormal chest x-ray with bilateral faint interstitial infiltrates. 4. Underlying chronic obstructive pulmonary disease with acute exacerbation. This is also contributing to her hypoxic respiratory failure. 5. Previous CVA with expressive aphasia. 6. Atrial fibrillation Plan . RECOMMENDATIONS: 1. We will continue present oxygen, keep saturation 92% and above. 2. Continue empiric antibiotic. 3. Continue steroids. 4. DuoNeb along with Pulmicort. 5. Diuresis. 6. Nl procalcitonin level. 7. Echocardiogram 8. Discussed with RN. And cardiology NGUYEN GATICA MD Sep 14, 2021 11:33
[2021-09-14] MEDS ORDERED: METH4TAB2 PO (12:02)
[2021-09-14] MEDS ORDERED: AZIT1PAC9 PO (12:02)
--- NOTE | 2021-09-14 12:03 | SNU/HH DC ---
DISCHARGE ORDERS DISCHARGE INFORMATION: FINAL DIAGNOSIS Problems Medical Problems: (1) Acute dyspnea Status: Acute (2) Bronchospasm Status: Acute (3) Pneumonia Status: Acute (4) Requires supplemental oxygen Status: Acute CONDITION ON DISCHARGE: Stable CODE STATUS: Code Status: DNR/DNI ALF: SNF STAY <30 DAYS: No HOSPICE: HOSPICE: No HOSPICE EVAL & TREAT: No LTAC: ADMIT TO LTAC: No POST DISCHARGE ORDERS: ACTIVITY ORDERS: Bedrest today DIET AFTER DISCHARGE: Cardiac DISCHARGE MEDICATIONS: Home Meds Active Scripts Azithromycin (AZITHROMYCIN PACKET) 1 Gm Packet, 1 PACKET PO ONCE for . for 1 Day, #1 PACKET 0 Refills dissolve in 2 ounces of water Prov:CASTLE,NIAL K III DO 09/14/21 Methylprednisolone (MEDROL) 4 Mg Tab.ds.pk, 1 PKG PO UD for ., #1 PKG Prov:CASTLE,NIAL K III DO 09/14/21 Reported Medications Diphenoxylate Hcl/Atropine (LOMOTIL TABLET) 1 Each Tablet, 1 TAB PO QID for DIARRHEA, #20 TAB 09/12/21 Petrolatum,White/Lanolin (VITAMIN A & D OINTMENT) 113 Gm Oint...g., 113 GM TP PRN PRN for RASH, MISC 09/12/21 Nystatin (NYSTATIN) 15 Gm Oint...g., 1 AWA TP BID for FUNGAL INGFECTION, #15 GM 1 Refill 09/12/21 Menthol/Zinc Oxide (CALMOSEPTINE OINTMENT) 3.5 Gm Oint.pack, 3.5 GM TP BID for prn, MISC 09/12/21 Loperamide Hcl (IMODIUM A-D) 1 Mg/7.5 Ml Liquid, 1 MG PO PRN PRN for DIARRHEA, LIQUID 09/12/21 Guaifenesin (JANAE-TUSSIN) 100 Mg/5 Ml Liquid, 10-20 ML PO PRN Q4HRS for cough, LIQUID 09/12/21 Acetaminophen (ACETAMINOPHEN) 325 Mg Tablet, 2 TAB PO PRN Q4-6HRS PRN for pain or fever for 30 Days, #30 TAB 0 Refills 09/12/21 Cholecalciferol (Vitamin D3) (VITAMIN D3) 2,400 Unit/1 Ml Liquid, 1000 UNIT MC DAILY for supplement, LIQUID 09/12/21 Carvedilol (CARVEDILOL ) 6.25 Mg Tablet, 6.25 MG PO BIDWMEALS for HTN, TAB 09/12/21 Escitalopram Oxalate (ESCITALOPRAM OXALATE) 20 Mg Tablet, 1 TAB PO DAILY for depression, #30 TAB 5 Refills 09/12/21 Clopidogrel Bisulfate (CLOPIDOGREL) 75 Mg Tablet, 1 TAB PO DAILY for stroke prevention, #90 TAB 1 Refill 09/12/21 Atorvastatin Calcium (ATORVASTATIN CALCIUM) 40 Mg Tablet, 1 TAB PO DAILY for hyperlipidemia, #30 TAB 5 Refills 09/12/21 Levothyroxine Sodium (Levothyroxine) 75 Mcg Capsule, 75 MCG PO DAILY06 for hypothyroidism, CAP 09/12/21 REMA STEVEN III DO Sep 14, 2021 12:03
--- NOTE | 2021-09-14 12:14 | DS ---
ADMISSION DIAGNOSIS: Chronic obstructive pulmonary disease exacerbation and respiratory failure. DISCHARGE DIAGNOSES: Resolving respiratory failure, resolving chronic obstructive pulmonary disease exacerbation, history of stroke, expressive aphasia, hemiplegia, hysterectomy, hyperlipidemia, atrial fibrillation, hypertension, chronic obstructive pulmonary disease, pneumonia, anxiety, depression, and hypothyroidism. CONSULTS: Cardiology and Pulmonary Medicine. PROCEDURES: None. HOSPITAL COURSE: The patient is a pleasant, middle-aged female presented with respiratory failure and cough, shortness of breath. She was admitted with presumed pneumonia and COPD exacerbation. The above consults were obtained. We gave her antibiotics, steroids, breathing treatments, oxygen, and did cardiac monitoring. Today, I saw and examined her. She is at her baseline and I suspect she can get home if okay with consultants. We will plan to discharge back to her previous living arrangement. DISPOSITION: skilled nursing. ACTIVITY: As tolerated. DIET: Low sodium. DISCHARGE MEDICATIONS: Plavix 75 a day, atorvastatin 40 a day, carvedilol 6.25 b.i.d., p.r.n. Tylenol, escitalopram 20 mg a day, guaifenesin p.r.n., Lomotil p.r.n., Imodium p.r.n., Synthroid 75 a day, nystatin powder, zinc oxide ointment, vitamin D, aspirin 81 a day and Culturelle p.r.n., Medrol Dosepak, and a Z-REILLY. TOTAL TIME: [address]: HORTENCIA/bharti TID: [id number]
--- NOTE | 2021-09-14 13:19 | NUR ---
Pt unable to do a 6 min walk to test O2 without oxygen, resting oxygen while in bed drops to 87% RA and bounces to 88% no higher. Pt has been using O2 at 3L NC. Pt will need oxygen upon discharge.
--- NOTE | 2021-09-14 13:30 | NUR ---
SS following up with discharge planning. SS reviewed pt chart and discussed with pt RN. Pt is currently requiring oxygen at three liters nasal canula. COVID19 negative. Six minute walk ordered. Pt unable to complete six minute walk. Pt tested on room air and dropped below 87%. Script received for oxygen. Script and clinical phoned and faxed to [facility], ; fax [phone]. Oxygen tank provided to pt for home. Discharge orders received for return to Assisted Living facility at [facility], ; fax [phone]. Discharge orders and clinical phoned and faxed to [facility]. Packet on chart. Pt will discharge today and return to [facility] via [facility] between 1430 and 1500. Pt, pt's RN, and pt's sister notified.
[2021-09-14 14:59] VITALS: BP 112/60
--- NOTE | 2021-09-14 16:14 | CARD ---
MR#: [id number] Date of Study: 09/14/2021 Ordering Physician: LAKSHMI BRAR, Referring Physician: LAKSHMI BRAR, Tech: Roslaie Roberts, [facility] APPROVED REPORT EXAM: Two-dimensional and M-mode echocardiogram with Doppler and color Doppler. Other Information Quality : AverageHR: 78bpm INDICATION Dyspnea Atrial Fibrillation Congestive Heart Failure 2D DIMENSIONS RVDd3.0 (2.9-3.5cm)Left Atrium(2D)3.6 (1.6-4.0cm) IVSd1.0 (0.7-1.1cm)Aortic Root(2D)3.2 (2.0-3.7cm) LVDd4.2 (3.9-5.9cm)LVOT Diameter2.0 (1.8-2.4cm) PWd1.2 (0.7-1.1cm)LVDs2.9 (2.5-4.0cm) FS (%) 32.4 %SV49.1 ml LVEF(%)61.0 (>50%) Aortic Valve AoV Peak Dante.111.6cm/sAoV VTI24.0cm AO Peak GR.5.0mmHgLVOT VTI 17.37cm AO Mean GR.3mmHg Mitral Valve MV E Peak Gr.4mmHgMV E Mean Gr.1mmHg TDI Lateral E' P. V8.37cm/sMedial E' P. V8.24cm/s Tricuspid Valve TR P. [id number]/sRAP [id number] TR Peak Gr.[id number] LEFT VENTRICLE The left ventricle is normal size. There is borderline to mild concentric left ventricular hypertroph y. The left ventricular systolic function is normal. The Ejection Fraction is 50-55%. There is normal LV segmental wall motion. Diastology indeterminate due to atrial fibrillation. RIGHT VENTRICLE The right ventricle is normal size. There is normal right ventricular wall thickness. The right ventr icular systolic function is normal. ATRIA The left atrium size is normal. The right atrium is borderline dilated. Interatrial septal thickening is noted. AORTIC VALVE The aortic valve is normal in structure and function. Doppler and Color Flow revealed trace aortic re gurgitation. There is no significant aortic valvular stenosis. Calculated aortic valve area is 2.34 c m2 with maximum pressure gradient of 7 mmHg and mean pressure gradient of 4 mmHg. MITRAL VALVE The mitral valve is normal in structure and function. There is no evidence of mitral valve prolapse. There is no mitral valve stenosis. Doppler and Color-flow revealed trace mitral regurgitation. TRICUSPID VALVE The tricuspid valve is normal in structure and function. Doppler and Color Flow revealed trace tricus pid regurgitation with an estimated PAP of 26 mmHg. There is no tricuspid valve stenosis. PULMONIC VALVE The pulmonic valve is not well visualized. Doppler and Color Flow revealed no pulmonic valvular regur gitation. GREAT VESSELS The aortic root is normal in size. The IVC is normal in size and collapses >50% with inspiration. PERICARDIAL EFFUSION There is no evidence of significant pericardial effusion. Critical Notification Critical Value: No <Conclusion> The left ventricular systolic function is normal. The Ejection Fraction is 50-55%. Trace mitral regurgitation. Trace tricuspid regurgitation with an estimated PAP of 26 mmHg. There is no evidence of significant pericardial effusion. Signed by : Juan Anaya, Electronically Approved : 09/14/2021 16:13:43
[2021-09-14] MEDS ORDERED: APIXABAN 5 MG TABLET. PO SCH (21:00)
== END 2021-09-14 14:45 | disposition home or self-care (01) | DRG 193 ==
LOC: ER 21:09 → 6 SOUTH 09-12 00:08
PROVIDERS: ADMIT Student in an Organized Health Care Education/Training Program; ATTEND Student in an Organized Health Care Education/Training Program
DX: J18.9 Pneumonia, unspecified organism (principal); J96.01 Acute respiratory failure with hypoxia; I50.33 Acute on chronic diastolic (congestive) heart failure; I69.359 Hemiplegia and hemiparesis following cerebral infarction affecting unspecified side; J44.0 Chronic obstructive pulmonary disease with (acute) lower respiratory infection; J44.1 Chronic obstructive pulmonary disease with (acute) exacerbation; E03.9 Hypothyroidism, unspecified; E78.00 Pure hypercholesterolemia, unspecified; E78.5 Hyperlipidemia, unspecified; F32.A Depression, unspecified; F41.9 Anxiety disorder, unspecified; I11.0 Hypertensive heart disease with heart failure; I48.91 Unspecified atrial fibrillation; I69.320 Aphasia following cerebral infarction; Z20.822 Contact with and (suspected) exposure to COVID-19; Z66 Do not resuscitate; Z82.49 Family history of ischemic heart disease and other diseases of the circulatory system; Z87.891 Personal history of nicotine dependence; Z90.710 Acquired absence of both cervix and uterus
CPT/HCPCS: 36415; 36600; 71045; 80048; 80053; 80061; 82805; 83605; 83735; 83880; 84145; 84443; 84484; 85025; 87040; 87426; 87804; 90471; 90686; 93005; 93306; 94640; 94760; 96374; 96375; J0456; J0696; J1940; J2405; J2920; J2930; J7050; U0003; 97535-GO; 99285-25; G0378; J7030; J7626